=== PATIENT | male | born 1945 | race Caucasian/White ===

== ENCOUNTER 2018-10-19 11:57 | Emergency (ER) | payer OTHER, MEDICARE ==
[2018-10-19] MEDS ORDERED: LORAZEPAM INJ 2 MG/1 ML VIAL ONE ×2 (12:08→12:23)
[2018-10-19] MEDS ORDERED: LEVETIRACETAM 1000 MG/NACL-ISO 1,000 MG/100 ML RTUPB IV ONE ×2 (12:12→12:20)
[2018-10-19] MEDS ORDERED: LORAZEPAM INJ 2 MG/1 ML VIAL IV ONE ×2 (12:19→12:21)
--- NOTE | 2018-10-19 13:14 | RADIOLOGY REPORT (SQ) ---
EXAM DESCRIPTION: CHEST SINGLE VIEW COMPLETED DATE/TIME: 10/19/2018 12:48 pm REASON FOR STUDY: Portable. Seizures, Hx lung ca surgery jun 2018 COMPARISON: None. EXAM PARAMETERS: NUMBER OF VIEWS: One view. TECHNIQUE: Single frontal radiographic view of the chest acquired. RADIATION DOSE: NA LIMITATIONS: None. FINDINGS: LUNGS AND PLEURA: Postsurgical changes in the left lung. Mild chronic appearing intersti tial changes. No pneumothorax. No consolidation or pleural effusion. MEDIASTINUM AND HILAR STRUCTURES: Postsurgical appearance. HEART AND VASCULAR STRUCTURES: Heart normal in size. Normal vasculature. BONES: No acute findings. HARDWARE: None in the chest. OTHER: No other significant finding. IMPRESSION: NO ACUTE RADIOGRAPHIC FINDING IN THE CHEST.Postsurgical changes in the left lung. TECHNICAL DOCUMENTATION: JOB ID: [id number] [employer]- All Rights Reserved Reading location - IP/workstation name: [email or web address]
--- NOTE | 2018-10-19 13:26 | RADIOLOGY REPORT (SQ) ---
EXAM DESCRIPTION: CT HEAD WITHOUT COMPLETED DATE/TIME: 10/19/2018 1:08 pm REASON FOR STUDY: Seizure of left side, Hx CA lung removal COMPARISON: None. TECHNIQUE: Axial images acquired through the brain without intravenous contrast. Images reviewed wi th bone, brain and subdural windows. Additional sagittal and coronal reconstructions were generated. Images stored on PACS. All CT scanners at this facility use dose modulation, iterative reconstruction, and/or weight based d osing when appropriate to reduce radiation dose to as low as reasonably achievable (ALARA). [facility]: Dose Right [facility]: CareDose [facility]: Dose Right [facility]: Teradose 4D [facility]: [employer] RADIATION DOSE: CT Rad equipment meets quality standard of care and radiation dose reduction techniq ues were employed. CTDIvol: 53.2 mGy. DLP: 1044 mGy-cm. mGy. LIMITATIONS: None. FINDINGS: VENTRICLES: Normal size and contour. CEREBRUM: Fairly extensive right parietal white matter edema. A dominant mass in the midst of this e elva likely measures up to almost 3 cm in maximal dimension. 2nd nearby parafalcine mass posteriorly is suggested, measuring 1 cm. Edema also in the left parietal lobe. A small mass here is also like ly. CEREBELLUM: No masses. No hemorrhage. No alteration of density. No evidence for acute infarction. EXTRAAXIAL SPACES: No fluid collections. No masses. ORBITS AND GLOBE: No intra- or extraconal masses. Normal contour of globe without masses. CALVARIUM: No fracture. PARANASAL SINUSES: No fluid or mucosal thickening. SOFT TISSUES: No mass or hematoma. OTHER: No other significant finding. IMPRESSION: 1. Intracranial mass lesions as described. Patient has history of lung cancer, presumably these are metastatic foci. Full extent of disease would be better evaluated with MRI of the brain without and with contrast. EVIDENCE OF ACUTE STROKE: NO. COMMENT: Quality ID # [id number]: Final reports with documentation of one or more dose reduction techniques (e.g., Automated exposure control, adjustment of the mA and/or kV according to patient size, use of iterative reconstruction technique) TECHNICAL DOCUMENTATION: JOB ID: [id number] [employer]- All Rights Reserved Reading location - IP/workstation name: [email or web address]
[2018-10-19 13:40] LABS: ABSOLUTE BASOPHILS # (AUTO) 0.1 10^3/uL (0.0-0.2); ABSOLUTE EOSINOPHILS # (AUTO) 0.1 10^3/uL (0.0-0.6); ABSOLUTE LYMPHOCYTES (AUTO) 2.1 10^3/uL (0.5-4.7); ABSOLUTE MONOCYTES (AUTO) 0.7 10^3/uL (0.1-1.4); ABSOLUTE NEUT (AUTO) 8.6 10^3/uL (1.7-8.2); BASOPHILS % (AUTO) 0.8 % (0-2); EOSINOPHILS % (AUTO) 0.5 % (0-6); HEMATOCRIT 44.4 % (37.9-51.0); LYMPHOCYTES % (AUTO) 18.5 % (13-45); MEAN CORPUSCULAR HEMOGLOBIN 33.1 pg (27.0-33.4); MEAN CORPUSCULAR HGB CONC 33.8 g/dL (32.0-36.0); MEAN CORPUSCULAR VOLUME 98 fl (80-97); MONOCYTES % (AUTO) 6.1 % (3-13); PLATELET COUNT 316 10^3/uL (150-450); RED BLOOD COUNT 4.53 10^6/uL (4.35-5.55); RED CELL DISTRIBUTION WIDTH 13.1 % (11.5-14.0); SEGMENTED NEUTROPHILS % (AUTO) 74.1 % (42-78); TOTAL CELLS COUNTED % (AUTO) 100 %; WHITE BLOOD COUNT 11.5 10^3/uL (4.0-10.5)
[2018-10-19 13:47] LABS: ALANINE AMINOTRANSFERASE 19 U/L (21-72); ALBUMIN 4.5 g/dL (3.5-5.0); ALKALINE PHOSPHATASE 73 U/L (38-126); ANION GAP 18 (5-19); ASPARTATE AMINO TRANSFERASE 23 U/L (17-59); BILIRUBIN,DIRECT 0.4 mg/dL (0.0-0.4); BILIRUBIN,TOTAL 0.4 mg/dL (0.2-1.3); BLOOD UREA NITROGEN 21 mg/dL (7-20); CALCIUM 9.9 mg/dL (8.4-10.2); CARBON DIOXIDE 18 mmol/L (22-30); CHLORIDE 109 mmol/L (98-107); GLUCOSE 91 mg/dL (75-110); POTASSIUM 5.5 mmol/L (3.6-5.0); SODIUM 144.6 mmol/L (137-145); TOTAL PROTEIN 7.6 g/dL (6.3-8.2)
[2018-10-19] MEDS ORDERED: DEXAMETHASONE SOD PHOS INJ 10 MG/1 ML VIAL IV ONE (14:36)
--- NOTE | 2018-10-19 14:41 | ER Document Report ---
ED Seizure - General Chief Complaint: Tremor Stated Complaint: TREMORS Time Seen by Provider: 10/19/18 12:19 Primary Care Provider: SHAHEED BALES [Primary Care Provider] - Follow up as needed Notes: Patient called EMS today about a tremor he has of his left side. EMS called here and said the patient has had this tremor for about an hour, but it had it several times during the last 10 days. No history of seizures. Patient denies headache. Patient is having what appears to be focal seizure involving the left side of his body, but he remains awake and alert and answers questions while the rhythmic jerking of his left side continues. Patient had a cancer of his lung removed in June,, at [facility]. Patient was a cigarette smoker up until he had his surgery earlier this year. - Related Data Allergies/Adverse Reactions: No Known Allergies Allergy (Unverified 10/19/18 12:19) Past Medical History - Social History Smoking Status: Former Smoker - Stopped earlier this year when he had his lung surgery. Chew tobacco use (# tins/day): No Frequency of alcohol use: None Drug Abuse: None Family History: Reviewed & Not Pertinent Patient has suicidal ideation: No Patient has homicidal ideation: No - Past Medical History Cardiac Medical History: Reports: Hx Coronary Artery Disease - History of a stent, Hx Hypercholesterolemia, Hx Hypertension Malignancy Medical History: Reports Hx Lung Cancer Past Surgical History: Reports: Hx Cardiac Surgery - stent, Other - Surgery for a lung cancer in June,. Review of Systems - Review of Systems -: Yes ROS unobtainable due to patient's medical condition - Patient is not able to answer continuous, repetitive questions of full revi Physical Exam - Vital signs Vitals: Resp Pulse Ox 28 H 91 L 10/19/18 12:01 10/19/18 12:01 Interpretation: Normal Notes: PHYSICAL EXAMINATION: GENERAL: Patient is having continuous rhythmic seizure contractions of the entire left side of his body including his head. He is awake during these rhythmic contractures. HEAD: Atraumatic, normocephalic. EYES: Pupils equal round and reactive to light, extraocular movements intact. ENT: oropharynx clear without exudates. Moist mucous membranes. NECK: Normal range of motion, supple. LUNGS: Breath sounds clear and equal bilaterally. HEART: Regular rate and rhythm without murmurs. ABDOMEN: Soft, nontender. No guarding or rebound. No masses. BACK: No tenderness throughout entire back. EXTREMITIES: Normal range of motion without pain. NEUROLOGICAL: Focal left-sided seizure continuously but with normal speech, gait not tested. Awake, alert, and oriented x3. PSYCH: Normal mood, normal affect. SKIN: Warm, dry, no rashes. Course - Re-evaluation Re-evalutation: 10/19/18 14:39 Patient was initially given a milligram of Ativan IV followed about 5 minutes later by another milligram of Ativan IV. No change in his seizure was noted. I gave him 1000 mg of Keppra IV and patient continued to have the seizures. They seem to be slowing down somewhat. He was given another milligram of Ativan and his seizing stopped. Patient's CT scan of the brain shows a very large right posterior brain lesion, likely secondary to metastases from his cancer. He also has a couple of smaller lesions there. There is significant edema around these lesions. Decadron 10 mg IV was ordered. Spoke with Dr. Mixon at [facility], where patient underwent his original surgery. They accepted him as a patient I do believe he will get a bed there. Family informed of patient's findings and plan. Patient is sleeping at night s he knows not to awaken him. - Vital Signs Vital signs: Temp Pulse Resp BP Pulse Ox 97.3 F 17 144/75 H 97 10/19/18 17:03 10/19/18 16:42 10/19/18 16:42 10/19/18 16:42 - Laboratory Result Diagrams: 10/19/18 12:15 10/19/18 12:15 Laboratory results interpreted by me: 10/19/18 10/19/18 12:15 12:15 WBC 11.5 H MCV 98 H Absolute Neutrophils 8.6 H Potassium 5.5 H Chloride 109 H Carbon Dioxide 18 L BUN 21 H Creatinine 1.27 H Est GFR (Non-Af Amer) 56 L ALT 19 L - Diagnostic Test Radiology reviewed: Image reviewed, Reports reviewed - CT of the brain shows a large mass in the righ posterior brain with significant adjacent edema. No obvious midline shift to me. Radiology results interpreted by me: 10/19/18 16:27 Chest x-ray is normal. Critical Care Note - Critical Care Note Total time excluding time spent on procedures (mins): 50 Discharge - Discharge Clinical Impression: Seizure, Brain mass, Status epilepticus Condition: Good Disposition: Tertiary-Other [facility]errals: [facility] [[facility]] - Follow up as needed
[2018-10-19] MEDS ORDERED: LEVETIRACETAM 500 MG/NACL-ISO 500 MG/100 ML RTUPB IV ONE (15:05)
[2018-10-19 17:03] VITALS: BP 144/75
--- NOTE | 2018-10-19 17:33 | EKG REPORT ---
SEVERITY:- NORMAL ECG - SINUS RHYTHM : Confirmed by: Maggy Contreras MD 19-Oct-2018 17:33:11
== END 2018-10-19 17:04 | disposition short-term general hospital (02) ==
LOC: ER 11:57
DX: G40.901 Epilepsy, unspecified, not intractable, with status epilepticus (principal); G93.9 Disorder of brain, unspecified; G93.6 Cerebral edema; I25.10 Atherosclerotic heart disease of native coronary artery without angina pectoris; I10 Essential (primary) hypertension; Z85.118 Personal history of other malignant neoplasm of bronchus and lung; Z98.890 Other specified postprocedural states; Z87.891 Personal history of nicotine dependence; Z95.5 Presence of coronary angioplasty implant and graft
CPT/HCPCS: 93005; 96376; 99291; 96375; 96365; 96366; 96367; 36415; 83735; 85025; 80053; 84484; 71045; 70450; 93010; J2060; J1100; J1953 ×2